=== PATIENT | female | born 1945 | race Caucasian/White ===

== ENCOUNTER → 2017-01-07 | Outpatient (CLI) | payer OTHER ==
[~2017-01-07] MED LIST: ATEN50TA PO; ATV1 PO; CYM/30 PO; DULOXETINE PO; FELO1TAB7 PO; HYDR-4380 PO; HYDR-5688 PO; HYDR25TA4 PO; LEVO100T PO; LEVO125T5 PO; MECL1TAB42 PO; NXM/40 PO; POTA1CAP2 PO; SIMV80TA2 PO; TOPI25TA55 PO
[2017-01-07 18:01] LABS: BASO % 0.8 %; BASO ABS # 0.03 K/uL (0-0.2); COMPLETE YES; EOS % 1.8 %; HEMATOCRIT 38.8 % (37-47); IG% 0.5 %; LYMPH % 32.1 %; LYMPH ABS # 1.25 K/uL (1.2-3.4); MEAN CELL VOLUME 94.6 fL (80-100); MEAN CORPUSCULAR HGB CONC 32.7 g/dl (32-36); MEAN PLATELET VOLUME 9.6 fL (7.4-10.4); MONO % 12.8 %; PLATELET COUNT 198 K/uL (130-400)
[2017-01-07 18:31] LABS: ALB/GLOB RATIO 1.2 (0.9-2); ALKALINE PHOSPHATASE 87 U/L (45-117); ALT/SGPT 25 U/L (12-78); AST/SGOT 21 U/L (15-37); BLOOD UREA NITROGEN 16 mg/dl (7-18); BUN/CREATININE RATIO 22.1 (10-20); CALCIUM 8.8 mg/dl (8.5-10.1); CARBON DIOXIDE 30 mmol/L (21-32); CHLORIDE 105 mmol/L (98-107); CHOLESTEROL 158 mg/dl (0-200); CHOLESTEROL/HDL RATIO 4.9; CREATININE 0.73 mg/dl (0.60-1.20); GLUCOSE 138 mg/dl (70-99); HDL CHOLESTEROL 32 mg/dl; POTASSIUM 4.2 mmol/L (3.5-5.1); SODIUM 143 mmol/L (136-145); THYROID STIMULATING HORMONE 0.484 uIu/ml (0.300-4.500)
[2017-01-07 18:32] LABS: LDL CHOLESTEROL CALCULATED 64 mg/dl; TRIGLYCERIDES 311 mg/dl (0-150); VERY LOW DENSITY LIPOPROT CALC 62 mg/dl
== END | disposition home or self-care (01) ==
LOC: C.LABSPEC 13:39
PROVIDERS: ATTEND Family Medicine
DX: I10 Essential (primary) hypertension (principal); E78.2 Mixed hyperlipidemia; E03.9 Hypothyroidism, unspecified

== ENCOUNTER 2017-04-17 07:37 | Inpatient (IN) | payer OTHER ==
[2017-04-02 11:05] VITALS: BMI 38.0
--- NOTE | 2017-04-02 11:39 | PAT Medication Instructions ---
Service Date Apr 02, 2017. Current Home Medication List Atenolol (Tenormin), 50 MG PO QAM Esomeprazole Magnesium (Nexium), 40 MG PO QAM Felodipine (Plendil), 2.5 MG PO QAM Hydrochlorothiazide (Hctz), 25 MG PO QAM Hydrocodone-Acetaminophen (Hydrocodone/Acetaminophen), 1 TAB PO TID Levothyroxine Sodium (Levothyroxine Sodium), 1 TAB PO QAM Meclizine Hcl (Meclizine Hcl), 1 TAB PO TID PRN for RN Potassium Chloride (Potassium Chloride Er), 1 CAP PO QAM Simvastatin (Zocor), 80 MG PO QAM [Duloxetine], 2 TAB PO QAM Medication Instructions For Your Scheduled Surgery - Hold the following medications the morning of surgery: Potassium Chloride (Potassium Chloride Er), 1 CAP PO QAM Hydrochlorothiazide (Hctz), 25 MG PO QAM - Take the following medications the morning of surgery with a sip of water: [Duloxetine], 2 TAB PO QAM Simvastatin (Zocor), 80 MG PO QAM Meclizine Hcl (Meclizine Hcl), 1 TAB PO TID PRN for RN (if needed) Hydrocodone-Acetaminophen (Hydrocodone/Acetaminophen), 1 TAB PO TID (okay to take up to 4 hours prior to surgery if needed) Levothyroxine Sodium (Levothyroxine Sodium), 1 TAB PO QAM Felodipine (Plendil), 2.5 MG PO QAM Atenolol (Tenormin), 50 MG PO QAM Esomeprazole Magnesium (Nexium), 40 MG PO QAM - Take the following medications as scheduled the night before surgery: Meclizine Hcl (Meclizine Hcl), 1 TAB PO TID PRN for RN (if needed) Hydrocodone-Acetaminophen (Hydrocodone/Acetaminophen), 1 TAB PO TID If you have any questions please call us at [phone] or [phone] or [phone]
--- NOTE | 2017-04-02 12:24 | DIAGNOSTIC IMAGING REPORT ---
TWO VIEW CHEST CLINICAL HISTORY: Preoperative examination. FINDINGS: PA and lateral chest radiographs are compared to study dated 10/21/2015. The cardiomediastinal silhouette is unremarkable. There is mild bibasilar atelectasis. The lungs and pleural spaces are otherwise clear. There is no pneumothorax. The skeletal structures are osteopenic. Degenerative change is present throughout the thoracic spine. IMPRESSION: No active disease in the chest. Electronically signed by: Subhash Mendoza M.D. 04/02/2017 12:22 PM Dictated Date/Time: 04/02/2017 12:21 PM
[2017-04-02 12:52] LABS: BASO % 0.4 %; BASO ABS # 0.02 K/uL (0-0.2); COMPLETE YES; EOS % 1.6 %; IG% 0.2 %; LYMPH % 36.4 %; LYMPH ABS # 1.64 K/uL (1.2-3.4); MEAN CELL VOLUME 93.7 fL (80-100); MEAN CORPUSCULAR HEMOGLOBIN 31.6 pg (25-34); MEAN CORPUSCULAR HGB CONC 33.8 g/dl (32-36); MEAN PLATELET VOLUME 9.9 fL (7.4-10.4); MONO % 12.4 %; PLATELET COUNT 186 K/uL (130-400); RED BLOOD COUNT 4.27 M/uL (4.2-5.4); URINE APPEARANCE CLEAR (CLEAR); URINE COLOR DK YELLOW; URINE NITRITE NEG (NEG); URINE PH 6.5 (4.5-7.5); URINE SPECIFIC GRAVITY 1.036 (1.000-1.030); UROBILINOGEN NEG (NEG); WHITE BLOOD COUNT 4.51 K/uL (4.8-10.8)
[2017-04-02 12:56] LABS: MANUAL MICROSCOPIC REQUIRED? NO; REVIEW REQ? NO
[2017-04-02 12:57] LABS: URINE BILIRUBIN NEG (NEG)
[2017-04-02 14:35] LABS: BUN/CREATININE RATIO 24.4 (10-20); CALCIUM 9.1 mg/dl (8.5-10.1); CREATININE 0.77 mg/dl (0.60-1.20); POTASSIUM 3.8 mmol/L (3.5-5.1)
[2017-04-17] VITALS (11 sets, daily range): BP systolic 100–168; BP diastolic 63–87; PULSE 61–95; TEMP 36.5–37; O2SAT 92–97; Ht 160 cm; Wt 97.7 kg
[~2017-04-17] VITALS: Ht 160 cm; Wt 97.7 kg
[~2017-04-17 07:37] MED LIST changes: -ATV1 PO; +CEFAZOLIN 2000 MG/60 ML D5W IV SCH; -CYM/30 PO; -HYDR-5688 PO; +LACTATED RINGER'S 1000ML 1,000 ML IV SCH; -LEVO100T PO; +LEVO125T4 PO; -LEVO125T5 PO; -TOPI25TA55 PO
[2017-04-17] MEDS ORDERED: MoRPHine SULFATE 10 MG/ML CARP/VIAL IV PRN (08:30)
[2017-04-17] MEDS ORDERED: ONDANSETRON INJ 2 MG/ML 2 ML VIAL IV PRN ×2 (08:30→12:30)
[2017-04-17] MEDS ORDERED: FENTANYL CITRATE INJ 50 MCG/1 ML 2 ML VIAL IV PRN (08:30)
[2017-04-17] MEDS ORDERED: ATROPINE SULFATE 0.1 MG/ML 5ML SYR IV PRN (08:30)
[2017-04-17] MEDS ORDERED: EpHEDrine SULFATE INJ 50 MG/ML AMP IV PRN (08:30)
--- NOTE | 2017-04-17 09:49 | History & Physical Bridge Note ---
H&P Re-Evaluation Bridge Note: I have examined the patient, reviewed the History & Physical and in the interval since the performance of the History & Physical I have noted the following changes of clinical significance: No changes noted
[2017-04-17] MEDS ORDERED: FENTANYL CITRATE INJ 50 MCG/1 ML 2 ML VIAL ONE ×4 (09:50→12:32)
[2017-04-17] MEDS ORDERED: MIDAZOLAM HCL 1 MG/ML 2ML VIAL ONE (09:50)
--- NOTE | 2017-04-17 09:50 | History and Physical ---
History & Physical Date Apr 17, 2017. Chief Complaint Back and leg pain History of Present Illness The patient is a 71 year old female with complaints of chronic persistent back and leg pain Past Medical/Surgical History Medical Problems: (1) Lumbar stenosis with neurogenic claudication Additional History Hepatic Disease: No Endocrine Disorder: No Kidney Disease: No Hypertension: Yes Heart Disease: No Bleeding Tendencies: No Infectious Diseases: No Allergies Coded Allergies: Oxycodone (Verified Adverse Reaction, Unknown, GI SYMPTOMS, 04/17/17) Home Medications Scheduled Atenolol (Tenormin), 50 MG PO QAM Esomeprazole Magnesium (Nexium), 40 MG PO QAM Felodipine (Plendil), 2.5 MG PO QAM Hydrochlorothiazide (Hctz), 25 MG PO QAM Hydrocodone-Acetaminophen (Hydrocodone/Acetaminophen), 1 TAB PO TID Levothyroxine Sodium (Levothyroxine Sodium), 1 TAB PO QAM Potassium Chloride (Potassium Chloride Er), 1 CAP PO QAM Simvastatin (Zocor), 80 MG PO QAM [Duloxetine], 2 TAB PO QAM Scheduled PRN Meclizine Hcl (Meclizine Hcl), 1 TAB PO TID PRN for RN Physical Examination Skin: warm/dry, no rash Eyes: normal inspection, EOMI, sclerae normal ENT: normal ENT inspection, pharynx normal Head: normocephalic, atraumatic Neck: supple, no adenopathy, trachea midline Respiratory/Chest: lungs clear, normal breath sounds, no respiratory distress Cardiovascular: regular rate, rhythm, no edema, no murmur Abdomen / GI: normal bowel sounds, non tender Back: normal inspection Extremities: normal inspection, normal range of motion Neurologic/Psych: no motor/sensory deficits, alert, normal reflexes, oriented x 3 Diagnosis Lumbar spinal stenosis Plan of Treatment Lumbar decompression L2-3 with fusion. Removal of instrumentation L3 to S1.
[2017-04-17] MEDS ORDERED: SODIUM CHLORIDE 0.9% PF 50 ML VIAL ONE (10:12)
[2017-04-17] MEDS ORDERED: BACITRACIN 50000 UNIT VIAL ONE (10:12)
[2017-04-17] MEDS ORDERED: HYDROmorphone INJ 2 MG/ML SYR/VIAL ONE ×2 (10:47→12:32)
[2017-04-17] MEDS: BUPIVACAINE/EPINEPHRINE 0.5% MPF 1:200,000 10 ML VIAL ONE (11:12)
[2017-04-17] MEDS ORDERED: SODIUM CHLORIDE 0.9% 1000ML 1,000 ML IV SCH (12:20)
[2017-04-17] MEDS ORDERED: FLOSEAL HEMOSTATIC MATRIX 10ML TOP ONE (12:20)
[2017-04-17] MEDS: SODIUM CHLORIDE 0.9% 1000ML 1,000 ML IV SCH ×2 (12:20→18:43)
--- NOTE | 2017-04-17 12:28 | [facility] Operative Report ---
Operative Report Operative Date Apr 17, 2017. Pre-Operative Diagnosis Lumbar spinal stenosis Post-Operative Diagnosis Lumbar spinal stenosis Procedure(s) Performed #1 removal of posterior instrumentation L3 to S1. #2 expiration of fusion L3 S1. #3 lumbar decompression medial facetectomies foraminotomies L1 to L2 3. #4 posterior spinal fusion L2-3. #5 placement of posterior segmental instrumentation L2 to S1. #6 interbody fusion L2 3. #7 placement peek cage 10 x 22 mm at L2-3. 8 placement of locally harvested morcellized autograft in the posterior lateral gutters. #Placement infuse collagen sponge combined with Master graft in the posterior lateral gutters and Reina bone graft in the interbody space. Surgeon Dr. Bin Vital Religious Leader Surgeon(s) Tiffany Chisholm PA-C Estimated Blood Loss 250mL Findings Severe spinal stenosis Specimens A: explanted spinal hardware Description of Procedure The patient was met with probably case discussed all questions are dressed. That point patient was taken back to the operative suite and after intubation placed in a prone position on the Aneudy table on top of the Cheng frame. All bony promises well-padded eyes inspected to ensure no external pressure placed upon. This point the lumbar spine prepped and draped nostril fashion. Sharp dissection with the assistance of Bovie cautery performed onto an exposing the lamina and transverse processes of L2 and instrumentation L3-L4 L5- S1 levels bilaterally. Then proceeded remove the hardware bilaterally. Explored the fusion mass noted grossly intact. Then performed a complete laminectomy of L2 partial laminectomy of L3 addressing severe lateral recess and foraminal disease. Pedicle screws then placed in L2 L3 L4 and S1 levels bilaterally. From a size oriana placed. Through a transforaminal port and right a complete discectomy of L2-3 was performed plates curetted to subcortical bleeding bone and a 10 x 22 mm peek cage filled with Reina bone grafting position. The rods and locked and final position bilaterally. Cross-link locked in position. Transverse processes of L to 3 burred to subcortical bleeding bone. Infuse collagen sponge mass Local harvested morcellized autograft was placed and posterior gutters. 15 round MURTAZA drain inserted. Incision then closed with 1 Vicryl in the fascia 2 0- 0 Vicryl subcutaneously and 4-0 Monocryl for final skin closure. Patient was awakened and taken to PACU stable condition. Please note Tiffany Magaña present about the entire procedure involved in patient positioning complex portions of the procedure and final skin closure. I attest to the content of the Intraoperative Record and any orders documented therein. Any exceptions are noted below.
[2017-04-17] MEDS ORDERED: ACETAMINOPHEN IV 100 ML IV PRN (12:30)
[2017-04-17] MEDS ORDERED: LORAZEPAM 0.5 MG TAB PO PRN (12:30)
[2017-04-17] MEDS ORDERED: METOCLOPRAMIDE HCL INJ 5 MG/ML 2 ML VIAL IV PRN (12:30)
[2017-04-17] MEDS ORDERED: DO NOT ADMINISTER PNEUMOCOCCAL VACCINE PRN ×2 (12:30)
[2017-04-17] MEDS ORDERED: LORAZEPAM INJ 0.5 MG in SYRINGE 0 ML IV PRN (12:30)
[2017-04-17] MEDS ORDERED: ACETAMINOPHEN 500 MG TAB PO PRN (12:30)
[2017-04-17] MEDS ORDERED: MAGNESIUM HYDROXIDE SUSP 30 ML UDC PO PRN (12:30)
[2017-04-17] MEDS ORDERED: hydrOXYzine HCL 25 MG TAB PO PRN (12:30)
[2017-04-17] MEDS ORDERED: MECLIZINE HCL 12.5 MG TAB PO PRN (12:30)
[2017-04-17] MEDS ORDERED: SOD PHOSPHATE/SOD BIPHOSPHATE ENEMA 132 ML BTL PR PRN (12:30)
[2017-04-17] MEDS ORDERED: PROMETHAZINE HCL INJ 12.5 MG in SODIUM CHLORIDE 0.9% 50ML 50 ML IV PRN (12:30)
[2017-04-17] MEDS ORDERED: BISACODYL 10 MG SUPP PR PRN (12:30)
[2017-04-17] MEDS ORDERED: NALOXONE HCL 0.4 MG/1 ML VIAL/CARP IV PRN ×2 (12:30)
[2017-04-17] MEDS ORDERED: FAMOTIDINE 20 MG TAB PO PRN (12:30)
[2017-04-17] MEDS ORDERED: DO NOT ADMINISTER FLU VACCINE PRN ×3 (12:30)
[2017-04-17] MEDS ORDERED: ALUMINUM/MAGNESIUM SUSP 30 ML UDC PO PRN (12:30)
[2017-04-17] MEDS ORDERED: PHENYLEPHRINE 100MCG/ML 5ML SYR ONE (12:35)
[2017-04-17] MEDS ORDERED: GLYCOPYRROLATE INJ 0.2 MG/ML VIAL ONE (12:35)
[2017-04-17] MEDS ORDERED: NEOSTIGMINE METHYLSULFATE 1 MG/ML 10ML VIAL ONE (12:35)
[2017-04-17] MEDS ORDERED: LIDOCAINE HCL 2% 2 ML VIAL (20MG/ML) ONE (12:35)
[2017-04-17] MEDS ORDERED: LABETALOL HCL IV 5 MG/ML 20ML IV ONE (12:35)
[2017-04-17] MEDS ORDERED: EpHEDrine SULFATE 50MG/5ML SYR ONE (12:35)
[2017-04-17] MEDS ORDERED: ONDANSETRON INJ 2 MG/ML 2 ML VIAL ONE (12:35)
[2017-04-17] MEDS ORDERED: ROCURONIUM BROMIDE 10 MG/ML 5 ML VIAL ONE (12:35)
[2017-04-17] MEDS ORDERED: KETOROLAC TROMETHAMINE 30 MG/ML VIAL ONE (12:35)
[2017-04-17] MEDS ORDERED: DEXAMETHASONE SOD INJ 4 MG/ML VIAL ONE (12:35)
[2017-04-17] MEDS ORDERED: PROPOFOL IV EMULSION 10 MG/ML 20 ML VIAL IV ONE (12:35)
--- NOTE | 2017-04-17 12:46 | DIAGNOSTIC IMAGING REPORT ---
LUMBAR SPINE 2 OR 3 VIEW CLINICAL HISTORY: L2-L3 LAMINECTOMY, DECOMPRESSION TECHNIQUE: Image intensifier COMPARISON STUDY: None FINDINGS: Image intensifier utilized for lumbar laminectomy and fusion revision IMPRESSION: Image intensifier utilized for lumbar laminectomy and fusion revision The above report was generated using voice recognition software. It may contain grammatical, syntax or spelling errors. Electronically signed by: Mayo Leach M.D. 04/17/2017 12:45 PM Dictated Date/Time: 04/17/2017 12:45 PM
[2017-04-17] MEDS: HYDROmorphone HCL 0.5MG/ML 50 ML CASSETTE IV PRN ×3 (13:32→22:47)
--- NOTE | 2017-04-17 14:33 | Anesthesiology Progress Note ---
Anesthesia Post Op Note Date & Time Apr 17, 2017 at 14:33 Vital Signs Vital Signs Past 12 Hours Date Time Temp Pulse Resp B/P (MAP) Pulse Ox O2 Delivery O2 Flow Rate FiO2 04/17/17 14:26 111/66 04/17/17 14:25 72 20 04/17/17 14:25 73 20 93 04/17/17 14:21 111/66 04/17/17 14:20 70 19 93 04/17/17 14:20 71 19 04/17/17 14:16 36.5 69 16 111/73 93 Mask 5 04/17/17 14:16 111/73 04/17/17 14:15 72 18 04/17/17 14:15 73 18 93 04/17/17 14:11 107/66 04/17/17 14:10 72 16 93 04/17/17 14:10 73 16 04/17/17 14:06 98/69 04/17/17 14:05 69 17 04/17/17 14:05 68 17 92 04/17/17 14:01 112/94 04/17/17 14:00 75 16 90 04/17/17 14:00 74 16 04/17/17 13:56 121/71 04/17/17 13:55 73 11 04/17/17 13:55 73 11 94 04/17/17 13:52 120/85 04/17/17 13:50 73 18 04/17/17 13:50 73 18 95 04/17/17 13:46 153/74 04/17/17 13:45 74 13 95 04/17/17 13:45 74 13 04/17/17 13:41 133/98 04/17/17 13:40 75 21 04/17/17 13:40 76 21 94 04/17/17 13:36 130/104 04/17/17 13:35 77 16 04/17/17 13:35 77 16 93 04/17/17 13:31 144/83 04/17/17 13:30 77 23 93 04/17/17 13:30 78 23 04/17/17 13:26 146/84 04/17/17 13:25 80 19 93 04/17/17 13:25 79 19 04/17/17 13:22 133/74 04/17/17 13:20 79 28 92 04/17/17 13:20 79 28 7/27/17 13:16 140/80 04/17/17 13:15 81 16 04/17/17 13:15 81 16 96 04/17/17 13:12 144/79 04/17/17 13:10 83 15 04/17/17 13:10 83 15 98 04/17/17 13:06 155/86 04/17/17 13:05 83 13 04/17/17 13:05 83 13 96 04/17/17 13:02 154/98 04/17/17 13:00 87 15 04/17/17 13:00 87 15 92 04/17/17 12:56 120/80 04/17/17 12:55 80 16 92 04/17/17 12:55 80 16 04/17/17 12:51 175/84 04/17/17 12:50 84 16 90 04/17/17 12:50 85 16 04/17/17 12:50 36.3 84 16 175/84 94 Mask 15 04/17/17 08:04 37 61 18 168/87 94 Room Air Notes Mental Status: alert / awake / arousable, participated in evaluation Pt Amnestic to Procedure: Yes Nausea / Vomiting: adequately controlled Pain: adequately controlled Airway Patency, RR, SpO2: stable & adequate BP & HR: stable & adequate Hydration State: stable & adequate Anesthetic Complications: no major complications apparent
[2017-04-17] MEDS: CEFAZOLIN IV 2,000 MG in DEXTROSE 5% 50ML 50 ML IV SCH (18:43)
[2017-04-17] MEDS: DEXAMETHASONE INJ 6 MG in SYRINGE 0 ML IV SCH (20:27)
[2017-04-17] MEDS: DOCUSATE SODIUM/SENNA 50/8.6MG TAB PO SCH (20:28)
[2017-04-18] VITALS (11 sets, daily range): BP systolic 106–144; BP diastolic 64–85; PULSE 74–85; TEMP 36.6–36.9; O2SAT 91–95
[2017-04-18] MEDS: CEFAZOLIN IV 2,000 MG in DEXTROSE 5% 50ML 50 ML IV SCH (01:24)
[2017-04-18] MEDS: SODIUM CHLORIDE 0.9% 1000ML 1,000 ML IV SCH (01:24)
[2017-04-18] MEDS: DEXAMETHASONE INJ 6 MG in SYRINGE 0 ML IV SCH ×2 (03:46→12:25)
[2017-04-18 05:44] LABS: COMPLETE YES; HEMATOCRIT 31.6 % (37-47); IG% 0.3 %; LYMPH % 6.8 %; LYMPH ABS # 0.62 K/uL (1.2-3.4); MEAN CELL VOLUME 91.9 fL (80-100); MEAN CORPUSCULAR HEMOGLOBIN 31.1 pg (25-34); MEAN CORPUSCULAR HGB CONC 33.9 g/dl (32-36); MEAN PLATELET VOLUME 9.2 fL (7.4-10.4); MONO % 3.6 %; NEUT % 89.3 %; PLATELET COUNT 188 K/uL (130-400); RED BLOOD COUNT 3.44 M/uL (4.2-5.4); WHITE BLOOD COUNT 9.17 K/uL (4.8-10.8)
[2017-04-18] MEDS ORDERED: HYDROmorphone INJ 0.5 MG/0.5 ML SYR IV PRN (06:00)
[2017-04-18] MEDS ORDERED: DC PCA ONE (06:00)
[2017-04-18] MEDS ORDERED: HYDROmorphone INJ 1 MG/ML SYR IV PRN (06:00)
[2017-04-18] MEDS: LEVOTHYROXINE 125 MCG TAB PO SCH (06:03)
[2017-04-18 06:11] LABS: BUN/CREATININE RATIO 18.5 (10-20); CALCIUM 7.7 mg/dl (8.5-10.1); CREATININE 0.72 mg/dl (0.60-1.20); POTASSIUM 4.2 mmol/L (3.5-5.1)
[2017-04-18] MEDS ORDERED: NURSING VERBAL MED ORDER ONE (06:15)
--- NOTE | 2017-04-18 07:46 | Anesthesiology Progress Note ---
Anesthesia Post Op Note Date & Time Apr 18, 2017 at 07:45 Vital Signs Pain Intensity: 0.0 Vital Signs Past 12 Hours Date Time Temp Pulse Resp B/P (MAP) Pulse Ox O2 Delivery O2 Flow Rate FiO2 04/18/17 03:37 36.6 85 16 106/64 (78) 94 Room Air 04/18/17 00:10 95 Nasal Cannula 1.0 04/17/17 22:58 36.6 79 16 134/76 (95) 93 Nasal Cannula 2.0 04/17/17 21:31 95 Nasal Cannula 1.0 04/17/17 21:30 Room Air 85.0 04/17/17 20:35 92 Room Air 04/17/17 20:00 95 Nasal Cannula 1.0 Notes Mental Status: alert / awake / arousable, participated in evaluation Pt Amnestic to Procedure: Yes Nausea / Vomiting: adequately controlled Pain: adequately controlled Airway Patency, RR, SpO2: stable & adequate BP & HR: stable & adequate Hydration State: stable & adequate Neuraxial Anesthesia: sensory block resolved Anesthetic Complications: no major complications apparent
[2017-04-18] MEDS: HYDROCODONE/ACETAMOPHEN 5/325MG TAB PO PRN ×3 (08:43→19:36)
[2017-04-18] MEDS: SIMVASTATIN 80 MG TAB PO SCH (08:44)
[2017-04-18] MEDS: PANTOprazole SOD 40 MG TAB PO SCH (08:45)
[2017-04-18] MEDS: HYDROCHLOROTHIAZIDE 25 MG TAB PO SCH (08:45)
[2017-04-18] MEDS: POTASSIUM CHLORIDE 10 MEQ TABCR PO SCH (08:45)
[2017-04-18] MEDS: FELODIPINE 2.5 MG TABCR PO SCH (08:45)
--- NOTE | 2017-04-18 17:25 | Progress Note ---
Progress Note Date of Service Apr 18, 2017. Progress Note Patient's back pain is controlled leg pain markedly improved. On exam vital signs are stable she sitting in chair as good strength testing. Assessment status post lumbar decompression fusion replant this time will continue therapy tomorrow. Pending her progress may discharge home.
[2017-04-18] MEDS ORDERED: HYDR-5688 PO (17:29)
--- NOTE | 2017-04-18 17:29 | Discharge Instructions ---
Discharge Instructions Date of Service Apr 18, 2017. Admission Reason for Admission: Spinal Stenosis Discharge Discharge Diagnosis / Problem: lumbar stenosis Discharge Goals Goal(s): Improve function Activity Recommendations Activity Limitations: per Instructions/Follow-up section . Instructions / Follow-Up Instructions / Follow-Up ACTIVITY RECOMMENDATIONS: SELF CARE INSTRUCTIONS AFTER THORACIC/LUMBAR FUSIONS 1. You may walk to your tolerance. It is good exercise for your legs and back. Expect some back and intermittent leg aches and pains. 2. You may perform "counter-top" level activities (make a sandwich, carmela with a project, etc.). 3. No bending or lifting of more than 10 pounds or back twisting of any nature (roll like a log when turning in bed). 4. You may ride in a car for 20-30 minutes at a time. No driving until after your first visit with your doctor. 5. Frequent changes of position and restricting sitting to 30 minutes at a time will help limit the amount of back spasms and stiffness you may experience. 6. You may discontinue the use of ambulatory aids (cane, crutches, etc.) once your strength and confidence allow. 7. You may linen checker the shower and let water strike your incision when you arrive home at least once daily. Do not take a tub bath, sit in a hot tub or go into a swimming pool until after your first recheck in the office. SPECIAL CARE INSTRUCTIONS: VERY IMPORTANT TO READ AND REVIEW A. Your surgical incision has been closed with a cosmetic suture under the skin that will dissolve in about 6 weeks. In 14 days, you can use a pair of clean scissors and cut the suture that is left outside of the skin at the ends of your incision. 1. The small skin tapes can be removed 7 days after surgery if they have not fallen off by that point. 2. You may keep the wound open to air as much as possible to promote healing after post-op day number 5 unless told otherwise by your doctor. 3. If you think the wound looks like it is becoming infected (redness or worsening drainage) and/or you are experiencing fever, chill or worsening back pain and muscle spasms, contact the office so that we may evaluate you as soon as possible. B. Complications are uncommon, but please contact us if you have any signs or symptoms of: 1. wound infection (fever higher than 102.5 degrees F, redness, separation of wound, drainage, or increasing pain from the incision) 2. blood clots in legs (pain, swelling, redness and warmth in legs) 3. urinary tract infection (fever higher than 102.5 degrees F, burning upon urination or increased frequency of urination) 4. nerve problems (inability to walk on your toes or heels, numbness, loss of bowel or bladder control) 5. any other symptoms that concern you C. Please call the office at if you have any concerns or questions about your operation or recovery. D. No smoking! Smoking drastically decreases the chance of a solid fusion. E. Do not take any anti-inflammatory medications (Indocin, Advil, Motrin, Aspirin, Naprosyn, etc.) as these may inhibit the chance of a solid fusion. Tylenol is okay to take for pain. MANAGING PAIN AFTER SPINAL SURGERY 1. Narcotic medication is intended for short-term use and will be provided for surgical pain. Surgical pain usually lasts for a period of 4-6 weeks. Narcotic medication includes Percocet, Vicodin, Darvocet, Tylenol #3 or Lortab. 2. Longer-term pain is more appropriately treated with non-narcotic medication such as Tylenol ES. 3. Muscle spasm is not appropriately treated with narcotics. Muscle relaxers such as Soma, Flexeril or Skelaxin can be used along with Tylenol ES. 4. Remember that we all live with some "aches and pains". This is not unusual or uncommon after an injury or as we get older. a. Back pain is expected and may include muscle spasms for 4 to 6 weeks after surgery. The pain should gradually improve. If the pain worsens for no apparent reason, please contact the office. b. Intermittent leg pain may also be experienced and should not be concerned about unless it worsens for no apparent reason. If so, please contact the office. 5. We will provide appropriate medication within the normal guidelines of their prescribed use. We will also be very cautious and aware of potential abuse and extended duration of patients' medication needs. a. Pain medications are for your comfort and to assist with sleep and rest so that the tissue can heal. They are not provided in order to return to normal activity and should not be used through the day. To do so or worsening pain at night can result from ongoing tissue damage and development of tolerance to the prescribed medicine. 6. Please allow 2-3 days to process refills. Prescriptions will not be mailed but must be picked up at the office. FOLLOW UP VISIT: Keep your scheduled follow-up appointment. Any questions, please call the office at . Current Hospital Diet Patient's current hospital diet: Regular Diet Discharge Diet Recommended Diet: Regular Diet Procedures Procedures Performed: #1 removal of posterior instrumentation L3 to S1. #2 expiration of fusion L3 S1. #3 lumbar decompression medial facetectomies foraminotomies L1 to L2 3. #4 posterior spinal fusion L2-3. #5 placement of posterior segmental instrumentation L2 to S1. #6 interbody fusion L2 3. #7 placement peek cage 10 x 22 mm at L2-3. 8 placement of locally harvested morcellized autograft in the posterior lateral gutters. #Placement infuse collagen sponge combined with Master graft in the posterior lateral gutters and Reina bone graft in the interbody space. Pending Studies Studies pending at discharge: no Medical Emergencies . Who to Call and When: Medical Emergencies: If at any time you feel your situation is an emergency, please call 911 immediately. . Non-Emergent Contact Non-Emergency issues call your: Primary Care Provider . "Provider Documentation" section prepared by Tavon Vital. . VTE Core Measure Inpt VTE Proph given/why not?: Torey Butler, SCD's
[2017-04-18] MEDS: DOCUSATE SODIUM/SENNA 50/8.6MG TAB PO SCH (21:29)
[2017-04-19] MEDS: HYDROCODONE/ACETAMOPHEN 5/325MG TAB PO PRN ×3 (00:12→12:25)
[2017-04-19] MEDS: LEVOTHYROXINE 125 MCG TAB PO SCH (05:54)
[2017-04-19] MEDS: POLYETHYLENE (MIRALAX) 17 GM PACK PO SCH ×2 (05:54→10:38)
[2017-04-19 07:12] VITALS: BP 147/85; PULSE 72; TEMP 36.6; O2SAT 97
[2017-04-19] MEDS: HYDROCHLOROTHIAZIDE 25 MG TAB PO SCH (09:00)
[2017-04-19] MEDS: PANTOprazole SOD 40 MG TAB PO SCH (09:03)
[2017-04-19] MEDS: SIMVASTATIN 80 MG TAB PO SCH (09:04)
[2017-04-19] MEDS: FELODIPINE 2.5 MG TABCR PO SCH (09:04)
[2017-04-19] MEDS: POTASSIUM CHLORIDE 10 MEQ TABCR PO SCH (09:04)
--- NOTE | 2017-04-19 09:58 | Discharge Summary ---
Orthopedic Discharge Summary Admission Date/Reason Apr 17, 2017 at 10:00 Spinal Stenosis. Discharge Date/Disposition Apr 19, 2017 Home Diagnosis Principal Diagnosis: Lumbar spinal stenosis Admission Physical Exam As per Admitting History & Physical. Hospital Course Patient underwent lumbar decompression fusion tolerated this well and taken to the orthopedic floor postoperatively. Postoperative leash progressed nicely leg pain markedly improved to be drain decreased appropriate. Subsequently she was discharged home. Discharge orders and instructions can be found the chart for further review. Discharge Instructions Please refer to the electronic Patient Visit Report (Discharge Instructions) for additional information.
[2017-04-19 12:33] VITALS: BP 147/85; PULSE 72; TEMP 36.6; O2SAT 97
== END 2017-04-19 14:10 | disposition home or self-care (01) | DRG 460 ==
LOC: C.ACU 07:37 → C.3E 10:00 → ENRESERV 14:21
PROVIDERS: ADMIT Orthopaedic Surgery Orthopaedic Surgery of the Spine; ATTEND Orthopaedic Surgery Orthopaedic Surgery of the Spine
PROC: 0SP304Z Removal of Internal Fixation Device from Lumbosacral Joint, Open Approach (ICD-10-PCS; principal; 2017-04-17 09:50)
PROC: 0SP004Z Removal of Internal Fixation Device from Lumbar Vertebral Joint, Open Approach (ICD-10-PCS; principal; 2017-04-17 09:50)
PROC: 0ST20ZZ Resection of Lumbar Vertebral Disc, Open Approach (ICD-10-PCS; principal; 2017-04-17 09:50)
PROC: 0SG00A1 (ICD-10-PCS; principal; 2017-04-17 09:50)
DX: M48.06 Spinal stenosis, lumbar region (principal); Z79.899 Other long term (current) drug therapy

== ENCOUNTER → 2017-07-08 | Outpatient (CLI) | payer OTHER ==
[~2017-07-08] MED LIST changes: -CEFAZOLIN 2000 MG/60 ML D5W IV SCH; +HYDR-5688 PO; -LACTATED RINGER'S 1000ML 1,000 ML IV SCH
[2017-07-08 14:18] LABS: BASO % 0.7 %; BASO ABS # 0.03 K/uL (0-0.2); COMPLETE YES; EOS % 4.2 %; HEMATOCRIT 39.8 % (37-47); IG% 0.5 %; LYMPH % 23.8 %; LYMPH ABS # 1.03 K/uL (1.2-3.4); MEAN CELL VOLUME 89.4 fL (80-100); MEAN CORPUSCULAR HEMOGLOBIN 29.9 pg (25-34); MEAN CORPUSCULAR HGB CONC 33.4 g/dl (32-36); MEAN PLATELET VOLUME 9.7 fL (7.4-10.4); MONO % 14.1 %; NEUT % 56.7 %; PLATELET COUNT 203 K/uL (130-400); RED BLOOD COUNT 4.45 M/uL (4.2-5.4); WHITE BLOOD COUNT 4.32 K/uL (4.8-10.8)
[2017-07-08 15:02] LABS: ESTIMATED AVERAGE GLUCOSE 166 mg/dl; HA1C FLAG Normal (Normal)
[2017-07-08 15:21] LABS: ALT/SGPT 23 U/L (12-78); AST/SGOT 18 U/L (15-37); BLOOD UREA NITROGEN 11 mg/dl (7-18); BUN/CREATININE RATIO 16.4 (10-20); CALCIUM 8.6 mg/dl (8.5-10.1); CARBON DIOXIDE 27 mmol/L (21-32); CHLORIDE 106 mmol/L (98-107); CREATININE 0.69 mg/dl (0.60-1.20); GLUCOSE 161 mg/dl (70-99); POTASSIUM 4.2 mmol/L (3.5-5.1); SODIUM 141 mmol/L (136-145)
[2017-07-08 15:30] LABS: ALB/GLOB RATIO 1.2 (0.9-2); ALKALINE PHOSPHATASE 119 U/L (45-117); CHOLESTEROL 171 mg/dl (0-200); CHOLESTEROL/HDL RATIO 5.5; HDL CHOLESTEROL 31 mg/dl; LDL CHOLESTEROL CALCULATED 62 mg/dl; THYROID STIMULATING HORMONE 0.289 uIu/ml (0.300-4.500); TRIGLYCERIDES 388 mg/dl (0-150); VERY LOW DENSITY LIPOPROT CALC 78 mg/dl
== END | disposition home or self-care (01) ==
LOC: C.LABSPEC 13:23
PROVIDERS: ATTEND Family Medicine
DX: I10 Essential (primary) hypertension (principal); E78.2 Mixed hyperlipidemia; E03.9 Hypothyroidism, unspecified; R61 Generalized hyperhidrosis

== ENCOUNTER → 2017-08-25 | Outpatient (CLI) | payer OTHER ==
[~2017-08-25] MED LIST changes: -LEVO125T4 PO; +LEVO125T5 PO
[2017-08-25 18:39] LABS: ALT/SGPT 24 U/L (12-78); AST/SGOT 15 U/L (15-37); BLOOD UREA NITROGEN 14 mg/dl (7-18); BUN/CREATININE RATIO 20.5 (10-20); CALCIUM 9.4 mg/dl (8.5-10.1); CARBON DIOXIDE 28 mmol/L (21-32); CHLORIDE 105 mmol/L (98-107); GLUCOSE 209 mg/dl (70-99); POTASSIUM 3.9 mmol/L (3.5-5.1); SODIUM 141 mmol/L (136-145)
[2017-08-25 18:49] LABS: ALB/GLOB RATIO 1.1 (0.9-2); ALKALINE PHOSPHATASE 123 U/L (45-117); THYROID STIMULATING HORMONE 0.549 uIu/ml (0.300-4.500)
[2017-08-26 08:03] LABS: ESTIMATED AVERAGE GLUCOSE 177 mg/dl; HA1C FLAG Normal (Normal)
== END | disposition home or self-care (01) ==
LOC: C.LABSPEC 17:48
PROVIDERS: ATTEND Family Medicine
DX: E03.9 Hypothyroidism, unspecified (principal); R73.9 Hyperglycemia, unspecified

== ENCOUNTER → 2017-11-25 | Outpatient (CLI) | payer OTHER ==
[2017-11-25 18:55] LABS: ALT/SGPT 21 U/L (12-78); AST/SGOT 14 U/L (15-37); BLOOD UREA NITROGEN 15 mg/dl (7-18); CALCIUM 8.9 mg/dl (8.5-10.1); CARBON DIOXIDE 33 mmol/L (21-32); CREATININE 0.82 mg/dl (0.60-1.20); GLUCOSE 153 mg/dl (70-99); POTASSIUM 4.1 mmol/L (3.5-5.1); SODIUM 142 mmol/L (136-145)
[2017-11-25 19:06] LABS: ALKALINE PHOSPHATASE 106 U/L (45-117); FOLLICLE STIMULAT HORMONE 32.11 IU/L; LUTEINIZING HORMONE 20.3 IU/L
[2017-11-26 07:07] LABS: HEMOGLOBIN A1C 7.6 % (4.5-5.6)
== END | disposition home or self-care (01) ==
LOC: C.LABSPEC 17:51
PROVIDERS: ATTEND Family Medicine
DX: R61 Generalized hyperhidrosis (principal)

== ENCOUNTER → 2018-01-06 | Outpatient (CLI) | payer OTHER ==
[2018-01-06 13:53] LABS: BASO % 0.7 %; BASO ABS # 0.03 K/uL (0-0.2); EOS % 1.1 %; EOS ABS # 0.05 K/uL (0-0.5); HEMATOCRIT 40.7 % (37-47); HEMOGLOBIN 13.7 g/dL (12.0-16.0); IG# 0.02 K/uL (0.00-0.02); LYMPH ABS # 1.32 K/uL (1.2-3.4); MEAN CELL VOLUME 93.1 fL (80-100); MEAN CORPUSCULAR HEMOGLOBIN 31.4 pg (25-34); MEAN CORPUSCULAR HGB CONC 33.7 g/dl (32-36); MEAN PLATELET VOLUME 9.8 fL (7.4-10.4); MONO % 11.6 %; MONO ABS # 0.53 K/uL (0.11-0.59); NEUT % 57.2 %; PLATELET COUNT 221 K/uL (130-400); RED CELL DISTRIBUTION WIDTH CV 13.6 % (11.5-14.5); RED CELL DISTRIBUTION WIDTH SD 46.4 fL (36.4-46.3); WHITE BLOOD COUNT 4.55 K/uL (4.8-10.8)
[2018-01-06 14:10] LABS: ALT/SGPT 23 U/L (12-78); AST/SGOT 14 U/L (15-37); BLOOD UREA NITROGEN 21 mg/dl (7-18); CALCIUM 8.7 mg/dl (8.5-10.1); CARBON DIOXIDE 28 mmol/L (21-32); CHOLESTEROL 161 mg/dl (0-200); CREATININE 0.82 mg/dl (0.60-1.20); GLUCOSE 157 mg/dl (70-99); SODIUM 139 mmol/L (136-145)
[2018-01-06 14:13] LABS: HEMOGLOBIN A1C 7.4 % (4.5-5.6)
[2018-01-06 14:19] LABS: ALKALINE PHOSPHATASE 93 U/L (45-117); LDL CHOLESTEROL CALCULATED 71 mg/dl; TOTAL PROTEIN 7.1 gm/dl (6.4-8.2)
== END | disposition home or self-care (01) ==
LOC: C.LABSPEC 13:15
PROVIDERS: ATTEND Family Medicine
DX: E11.9 Type 2 diabetes mellitus without complications (principal); I10 Essential (primary) hypertension; E03.9 Hypothyroidism, unspecified